=== PATIENT | female | born 2000 | race Caucasian/White ===

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

== ENCOUNTER 2023-04-07 09:55 | Emergency (ER) | payer BC, MEDICAID ==
[2023-04-07] MEDS ORDERED: Lidocaine 1% with EPINEPHrine 1:100,000 20 ML MDV INJECT ONE (10:22)
== END 2023-04-07 11:21 | disposition home or self-care (01) ==
LOC: JD.ED 09:55
DX: N75.0 Cyst of Bartholin's gland (principal)
CPT/HCPCS: 10060; 56420; 87070; 87075; 87077; 87186; 87205; 99283; J3490